=== PATIENT | female | born 2005 | race Caucasian/White ===

== ENCOUNTER → 2025-04-29 | Outpatient (CLI) | payer OTHER ==
[~2025-04-29] MED LIST: ASPI81CH33 PO; PRENTAB9 PO
== END ==
LOC: M LAB 07:27
PROVIDERS: ATTEND Obstetrics & Gynecology
DX: O99.810 Abnormal glucose complicating pregnancy (principal); Z3A.00 Weeks of gestation of pregnancy not specified

== ENCOUNTER → 2025-05-12 | Outpatient (REF) | payer OTHER ==
[2025-05-13 15:36] LABS: TOTAL PROTEIN,RANDOM URINE 35.1 MG/DL (0.0-14.0)
== END ==
LOC: M SFHCWAGY 16:42
PROVIDERS: ATTEND Obstetrics & Gynecology
DX: Z87.59 Personal history of other complications of pregnancy, childbirth and the puerperium (principal)

== ENCOUNTER 2025-05-17 10:10 | Outpatient (CLI) | payer OTHER ==
[~2025-05-17] VITALS: Ht 172.7 cm; Wt 99.8 kg
[2025-05-17 10:28] VITALS: BP 118/73
[2025-05-17] MEDS ORDERED: ACET1TAB55 PO (10:31)
[2025-05-17] MEDS ORDERED: HOME MED LIST COMPLETE! XX SCH (10:35)
[2025-05-17 10:49] VITALS: BP 133/72
[2025-05-17] MEDS: FIORICET TAB PO ONE (11:02)
[2025-05-17 11:19] LABS: TOTAL PROTEIN,RANDOM URINE 32.0 MG/DL (0.0-14.0)
[2025-05-17 11:25] VITALS: O2SAT 97
[2025-05-17 11:28] LABS: PLATELET COUNT, AUTOMATED 294 10^3/uL (150-450)
[2025-05-17 11:48] LABS: LDH LACTATE DEHYDROGENASE 220 U/L (120-246)
[2025-05-17 11:49] LABS: ALT/SGPT < 9 U/L (7.0-40); AST/SGOT 13 U/L (<34); CREATININE FOR GFR 0.49 MG/DL (0.55-1.30); GLOMERULAR FILTRATION RATE > 90.0 (>60)
[2025-05-17 12:16] VITALS: BP 137/80
[2025-05-17 12:58] VITALS: O2SAT 99
== END 2025-05-17 13:11 | disposition home or self-care (01) ==
LOC: M LDO 10:10
PROVIDERS: ATTEND Specialist
DX: O26.893 Other specified pregnancy related conditions, third trimester (principal); R51.0 Headache with orthostatic component, not elsewhere classified; Z3A.33 33 weeks gestation of pregnancy
CPT/HCPCS: 36415; 59025; 82247; 82570; 83615; 84156; 84450; 84460; 84550; 85027; G0463

== ENCOUNTER → 2025-06-07 | Outpatient (REF) | payer OTHER ==
[~2025-06-07] MED LIST changes: +ACET1TAB55 PO
== END ==
LOC: M SFHCWAGY 09:46
PROVIDERS: ATTEND Obstetrics & Gynecology
DX: Z3A.36 36 weeks gestation of pregnancy (principal)

== ENCOUNTER 2025-06-11 22:22 | Outpatient (CLI) | payer OTHER ==
[~2025-06-11] VITALS: Ht 172.7 cm; Wt 104.5 kg
[2025-06-11 22:36] VITALS: BP 115/77
[2025-06-11] MEDS ORDERED: HOME MED LIST COMPLETE! XX SCH (22:45)
== END 2025-06-12 00:41 | disposition home or self-care (01) ==
LOC: M LDO 22:22
PROVIDERS: ATTEND Obstetrics & Gynecology
DX: O47.03 False labor before 37 completed weeks of gestation, third trimester (principal); O99.213 Obesity complicating pregnancy, third trimester; E66.9 Obesity, unspecified; Z3A.36 36 weeks gestation of pregnancy
CPT/HCPCS: 59025; G0463

== ENCOUNTER 2025-06-17 10:25 | Outpatient (CLI) | payer OTHER ==
[~2025-06-17] VITALS: Ht 172.7 cm; Wt 104.8 kg
[2025-06-17 10:46] VITALS: BP 142/88
[2025-06-17 11:45] VITALS: BP 129/74
== END 2025-06-17 12:00 | disposition home or self-care (01) ==
LOC: M LDO 10:25
PROVIDERS: ATTEND Advanced Practice Midwife
DX: O26.893 Other specified pregnancy related conditions, third trimester (principal); O99.213 Obesity complicating pregnancy, third trimester; N89.8 Other specified noninflammatory disorders of vagina; E66.9 Obesity, unspecified; Z3A.37 37 weeks gestation of pregnancy
CPT/HCPCS: 59025; G0463

== ENCOUNTER → 2025-06-23 | Outpatient (CLI) | payer OTHER | LOC: M WHC 09:06 | PROVIDERS: ATTEND Obstetrics & Gynecology | DX: O99.810 Abnormal glucose complicating pregnancy (principal) ==